=== PATIENT | female | born 1935 | race Caucasian/White ===

== ENCOUNTER 2018-04-26 06:33 | Day surgery (SDC) | payer OTHER ==
[2018-04-23 12:23] VITALS: BMI 26.6
[2018-04-26 07:24] LABS: BASO # 0.03 K/mm3 (0.0-2.0); BASO % 0.5 % (0.0-3.0); EOS # 0.3 (0.0-0.7); EOS % 5.2 % (1.5-5.0); GRAN # 3.12 (1.4-6.5); GRAN % 50.6 % (50.0-68.0); HEMOGLOBIN 11.5 g/dL (12.0-16.0); LYMPH # 2.2 (1.2-3.4); LYMPH % 36.1 % (22.0-35.0); MEAN CELL VOLUME 94.6 fl (80.0-105.0); MEAN CORPUSCULAR HEMOGLOBIN 30.8 pg (25.0-35.0); MEAN CORPUSCULAR HGB CONC 32.6 g/dl (31.0-37.0); MONO # 0.5 (0.1-0.6); MONO % 7.6 % (1.0-6.0); RBC 3.73 10^6/uL (3.5-6.1); RED CELL DISTRIBUTION WIDTH 14.4 % (11.5-14.5); WHITE BLOOD COUNT 6.2 10^3/ul (4.5-11.0)
[2018-04-26 07:27] LABS: CALCIUM 9.7 mg/dL (8.4-10.5)
[2018-04-26 07:28] LABS: INR 0.94; PARTIAL THROMBOPLASTIN TIME 29.5 Seconds (25.1-36.5); PROTHROMBIN TIME 10.8 SECONDS (9.4-12.5)
[2018-04-26 07:35] VITALS: RESP 18
[2018-04-26] MEDS ORDERED: Lidocaine PF 2% (5 ml) Inj (For Cardiac Arrhy) ONE (08:30)
[2018-04-26] MEDS ORDERED: Midazolam 2 MG/2 ML VIAL ONE ×2 (08:31→08:58)
[2018-04-26] MEDS ORDERED: Iodixanol 320 MG/ML 200 ML BOTTLE IV ONE (08:31)
[2018-04-26] MEDS ORDERED: Iodixanol 320 MG/ML 100 ML BOTTLE IV ONE (08:31)
[2018-04-26] MEDS ORDERED: Sodium Chloride 0.9% 1,000 ML IV SCH (09:45)
[2018-04-26 10:19] VITALS: TEMP 97.8
[2018-04-26] MEDS ORDERED: Pantoprazole 40mg/100mL NS 40 MG/100 ML BAG IVPB STA (10:29)
--- NOTE | 2018-04-26 10:47 | CARDCATH ---
PROCEDURE DATE: 04/26/2018 HISTORY: The patient is an 82-year-old woman who presents with chest pain and abnormal stress test. She suffers from hypertension, diabetes mellitus, and hypercholesterolemia. Because of her abnormal stress test, cardiac catheterization was recommended. PROCEDURE: Left heart catheterization with coronary arteriography and left ventriculogram. The right femoral artery was cannulated with a 6-[place] sheath. There were no complications. I performed moderate sedation which included the presence of an independent trained observer that assisted in monitoring the patient's level of consciousness and physiologic status. After administration of Versed and fentanyl, my intra-service time was 15 minutes. Initial hemodynamic data revealed a central aortic pressure of 220/110 mmHg. 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 The findings on catheterization revealed a left ventricle that contracted normally. Estimated ejection fraction of 70%. Her coronary anatomy revealed a right dominant circulation. The RCA revealed intimal irregularities without significant stenoses. The left main artery was unremarkable. The LAD revealed diffuse atherosclerosis throughout its length in the distal portion of the LAD, there is a 50% stenoses noted. The diagonal vessels were free of significant disease. The circumflex artery was free of significant disease. Angio-Seal was used to close the femoral artery site. The patient tolerated the procedure well. In summary, the procedure revealed diffuse coronary atherosclerosis with no critical lesions. In the very distal portion of the LAD, there is a 50% stenosis noted. LV function is normal. Given these findings, the patient will need to remain on aspirin indefinitely and undergoes cardiac risk reduction program. Emphasis needs to be controlling her blood pressure. We will discharge her with clonidine 0.1 b.i.d. She will follow with primary care doctor for continued BP control. Brandan Shanks MD
[2018-04-26 12:03] VITALS: O2SAT 100
[2018-04-26 15:28] VITALS: BP 130/70; PULSE 67
== END 2018-04-26 15:27 | disposition home or self-care (01) ==
LOC: CATH 06:33
PROVIDERS: ATTEND Internal Medicine Cardiovascular Disease
DX: I25.119 Atherosclerotic heart disease of native coronary artery with unspecified angina pectoris (principal); I10 Essential (primary) hypertension; E78.5 Hyperlipidemia, unspecified; D64.9 Anemia, unspecified; Z86.73 Personal history of transient ischemic attack (TIA), and cerebral infarction without residual deficits; E11.9 Type 2 diabetes mellitus without complications; E78.00 Pure hypercholesterolemia, unspecified; R94.39 Abnormal result of other cardiovascular function study
CPT/HCPCS: 36415; 80048; 80061; 85025; 85610; 85730; 86850; 86900; 93458; 99152; 99153; C1760; C1769; C2629; C9113; J0360; J1644; J2250; J3010; J7030; Q9966; Q9967

== ENCOUNTER 2018-09-10 09:54 | Outpatient (CLI) | payer OTHER | END 2018-09-10 09:55 | disposition home or self-care (01) | LOC: RAD 09:54 ==

== ENCOUNTER 2018-11-26 15:07 | Emergency (ER) | payer MEDICARE, OTHER, MEDICAID ==
--- NOTE | 2018-11-26 15:35 | ED PDOC ---
Arrival/HPI - General Historian: Patient - History of Present Illness Narrative History of Present Illness (Text): 11/26/18 15:30 83 y/o female, pmh including hld/dm/hypothyroidism/chronic hip pain bilaterally, c/o lt. hip pain for years with no fall or trauma. Pt. stated that she has left hip pain on and off for years, started again this week with weather change, no fever or chills, no headache or night sweat, no rash, no numbness or tingling, no palpitation, no rash, no other medical or psychological complaints. Past Medical History - Provider Review Nursing Documentation Reviewed: Yes - Infectious Disease Hx of Infectious Diseases: None - Tetanus Immunization Tetanus Immunization: Unknown - Cardiac Hx Pacemaker: No - Pulmonary Hx Respiratory Disorders: No Hx Asthma: No Hx Bronchitis: No Hx Chronic Obstructive Pulmonary Disease (COPD): No Hx Emphysema: No Hx Pneumonia: No Hx Respiratory Aspiration: No Hx Respiratory Tract Infection: No Hx Sleep Apnea: No Hx Tuberculosis: No - Neurological Hx Paralysis: No - HEENT Hx HEENT Disorder: No Hx Blind: No Hx Cataracts: Yes Hx Deafness: No Hx Difficulty Chewing: No Hx Glaucoma: No Hx Macular Degeneration: No - Renal Hx Renal Disorder: No Hx Dialysis: No Hx Kidney Stones: No Hx Neurogenic Bladder: No Hx Pyelonephritis: No Hx Renal Cancer: No Hx Renal Failure: No - Endocrine/Metabolic Hx Endocrine Disorders: No Hx Adrenal Cancer: No Hx Diabetes Insipidus: No Hx Diabetes Mellitus Type 1: No Hx Diabetes Mellitus Type 2: No Hx Hyperthyroidism: No Hx Hypothyroidism: Yes Hx Systemic Lupus Erythematosus: No - Hematological/Oncological Hx Blood Transfusions: No Hx Blood Transfusion Reaction: No - Integumentary Hx Dermatological Disorder: No Hx Basal Cell Carcinoma: No Hx Eczema: No Hx Melanoma: No Hx Psoriasis: No Hx Squamous Cell Carcinoma: No - Musculoskeletal/Rheumatological Hx Musculoskeletal Disorders: No - Gastrointestinal Hx Gastrointestinal Disorders: No Hx Colostomy: No Hx Crohn's Disease: No Hx Diverticulitis: No Hx Gall Bladder Disease: No Hx Gastroesophageal Reflux: No Hx Ileostomy: No Hx Liver Failure: No Hx Pancreatitis: No HX Swallowing Problems: No - Genitourinary/Gynecological Hx Genitourinary Disorders: No Hx Hematuria: No Hx Incontinence: No Hx Sexually Transmitted Diseases: No Hx Urinary Tract Infection: No - Psychiatric Hx Emotional Abuse: No Hx Physical Abuse: No Hx Substance Use: No - Surgical History Hx Amputation: No Hx Appendectomy: Yes (50 years ago) Hx Cardiac Catheterization: No Hx Cholecystectomy: No Hx Coronary Stent: No Hx Gastric Bypass Surgery: No Hx Hysterectomy: No Hx Joint Replacement: No Hx Kidney Transplant: No Hx Liver Transplant: No Hx Mastectomy: No Hx Musculoskeletal Surgery: No Hx Open Heart Surgery: No Hx Orthopedic Surgery: No Hx Splenectomy: No Hx Valve Replacement: No Other/Comment: cataract surgery 1 year ago. tubal ligation 50 years ago - Anesthesia Hx Anesthesia Reactions: No Hx Malignant Hyperthermia: No - Suicidal Assessment Feels Threatened In Home Enviroment: No Family/Social History - Physician Review Nursing Documentation Reviewed: Yes Family/Social History: Unknown Family HX Smoking Status: Never Smoked Hx Alcohol Use: No Hx Substance Use: No Hx Substance Use Treatment: No Allergies/Home Meds Allergies/Adverse Reactions: Allergies No Known Allergies Allergy (Verified 02/07/16 10:59) Home Medications: Home Meds Medication Instructions Recorded Confirmed Levothyroxine Sodium 75 mcg PO QAM 09/12/13 04/26/18 Linaclotide [Linzess] 145 mcg PO DAILY 02/07/16 04/26/18 Allopurinol [Zyloprim] 100 mg PO DAILY 04/23/18 04/26/18 Aspirin [Adult Aspirin] 81 mg PO DAILY 04/23/18 04/26/18 Ergocalciferol (Vitamin D2) 50,000 unit PO SAT 04/23/18 04/26/18 [Vitamin D2] Folic Acid 1 mg PO DAILY 04/23/18 04/26/18 Magnesium Oxide [Magnesium] 400 mg PO TID 04/23/18 04/26/18 Memantine HCl [Memantine HCl ER] 28 mg PO DAILY 04/23/18 04/26/18 Pravastatin Sodium [Pravachol] 40 mg PO DAILY 04/23/18 04/26/18 metFORMIN [glucOPHAGE] 250 mg PO DAILY 04/23/18 04/26/18 Review of Systems - Review of Systems Constitutional: absent: Fatigue, Fevers Eyes: absent: Vision Changes ENT: absent: Hearing Changes Respiratory: absent: SOB, Cough Cardiovascular: absent: Chest Pain Gastrointestinal: absent: Abdominal Pain, Diarrhea, Nausea, Vomiting Genitourinary Female: absent: Dysuria Musculoskeletal: Arthralgias Skin: absent: Rash, Pruritis Neurological: absent: Headache, Dizziness Psychiatric: absent: Anxiety, Depression, Suicidal Ideation Physical Exam Vital Signs Reviewed: Yes Temperature: Afebrile Blood Pressure: Normal Pulse: Regular Respiratory Rate: Normal Appearance: Positive for: Well-Appearing, Non-Toxic, Comfortable Pain Distress: Moderate Mental Status: Positive for: Alert and Oriented X 3 - Systems Exam Head: Present: Atraumatic, Normocephalic Pupils: Present: PERRL Extroacular Muscles: Present: EOMI Conjunctiva: Present: Normal Mouth: Present: Moist Mucous Membranes Neck: Present: Normal Range of Motion Respiratory/Chest: Present: Clear to Auscultation, Good Air Exchange. No: Respiratory Distress, Accessory Muscle Use Cardiovascular: Present: Regular Rate and Rhythm, Normal S1, S2. No: Murmurs Abdomen: No: Tenderness, Distention, Peritoneal Signs Back: Present: Normal Inspection. No: CVA Tenderness, Midline Tenderness, Paraspinal Tenderness, Pain with Leg Raise, Decubitus Ulcer Upper Extremity: Present: Normal Inspection. No: Cyanosis, Edema Lower Extremity: Present: Normal Inspection, NORMAL PULSES, Normal ROM, Neurovascularly Intact, Capillary Refill < 2 s, Other (LLE: +ttp on the lt. la teral hip tendon region, no erythematous/cellulitis or ulcers, FROM without limitation, sensation intact, motor 5/5, +DPPT pulses, capillary refill< 2 seconds, neurovascular intact. ). No: Edema, Swelling, Deformity Neurological: Present: GCS=15, CN II-XII Intact, Speech Normal, Motor Func Grossly Intact, Normal Cerebellar Funct, Gait Normal, Memory Normal Skin: Present: Warm, Dry, Normal Color. No: Rashes Psychiatric: Present: Alert, Oriented x 3, Normal Insight, Normal Concentration Medical Decision Making ED Course and Treatment: 11/26/18 15:43 -Lidoderm and percocet -xray -LLE venuous doppler 11/26/18 17:17 -LLT Venuous doppler: as per preliminary report, no DVT -Lt. hip xray ER wet read: no fracture/dislocation, +DJD -Pt. feels much better, walking with normal gait and posture. -Discharge home with lidoderm patch, tylenol, follow up with your own pmd and orthopedic within 2 days, return to the ER for any new or worsening signs or symptoms. - RAD Interpretation Radiology Orders: -LLT Venuous doppler: as per preliminary report, no DVT PROCEDURE: Left lower extremity venous US HISTORY: Leg pain and swelling. Evaluate for DVT. PHYSICIAN(S): Brandan Schreiber MD. TECHNIQUE: Duplex sonography and color-flow Doppler with graded compression were used to evaluate the deep venous system of the left lower extremity. FINDINGS: The visualized deep venous system of the left lower extremity is sonographically normal and compressible. Normal wave forms and augmentation are seen. There is no sonographic evidence for deep venous thrombosis in the visualized segments of the left lower extremity. IMPRESSION: 1. No sonographic evidence for deep venous thrombosis in the visualized segments of the left lower extremity. -Lt. hip xray Date of service: 11/26/2018 PROCEDURE: Pelvis, left hip three views HISTORY: lt. lateral hip pain for years COMPARISON: None TECHNIQUE: Standard protocol for this study/examination. FINDINGS: There are no osseous abnormalities to suggest fracture. The pelvic ring is intact. Preserved femoral-acetabular relationship. Negative study for protrusio, subluxation or dislocation. Degenerative changes: Minimal and symmetrical. IMPRESSION: No significant or acute findings to account for/ related to the clinical presentation. 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 Disposition/Present on Arrival - Present on Arrival Any Indicators Present on Arrival: No History of DVT/PE: No History of Uncontrolled Diabetes: No Urinary Catheter: No History of Decub. Ulcer: No History Surgical Site Infection Following: None - Disposition Have Diagnosis and Disposition been Completed?: Yes Diagnosis: Degenerative localized arthritis of hip, Hip pain Disposition: HOME/ ROUTINE Disposition Time: 17:18 Patient Plan: Discharge Patient Problems: Current Active Problems Problem Status Onset Degenerative localized arthritis of hip Acute Hip pain Acute Condition: GOOD Additional Instructions: Discharge home with lidoderm patch, tylenol, follow up with your own pmd and orthopedic within 2 days, return to the ER for any new or worsening signs or symptoms. Prescriptions: Acetaminophen [Tylenol] 2 cap PO QID PRN #30 capsule PRN Reason: Other Lidocaine 5% [Lidoderm] 1 patch TOP DAILY PRN #10 patch PRN Reason: Other Referrals: Aniceto Meadows MD [Primary Care Provider] - Follow up with primary Flori Muhammad MD [Staff Provider] - Follow up with primary
[2018-11-26 15:56] VITALS: RESP 18; TEMP 98.4; O2SAT 96; BMI 28.3
[2018-11-26] MEDS ORDERED: Oxycodone/Acetaminophen 2.5/325 mg Tab PO STA (15:57)
[2018-11-26] MEDS ORDERED: Lidocaine 5% Patch TD SCH (16:00)
--- NOTE | 2018-11-26 17:38 | US ---
PROCEDURE: Left lower extremity venous US HISTORY: Leg pain and swelling. Evaluate for DVT. PHYSICIAN(S): Brandan Schreiber MD. TECHNIQUE: Duplex sonography and color-flow Doppler with graded compression were used to evaluate the deep venous system of the left lower extremity. FINDINGS: The visualized deep venous system of the left lower extremity is sonographically normal and compressible. Normal wave forms and augmentation are seen. There is no sonographic evidence for deep venous thrombosis in the visualized segments of the left lower extremity. IMPRESSION: 1. No sonographic evidence for deep venous thrombosis in the visualized segments of the left lower extremity.
--- NOTE | 2018-11-26 17:45 | RAD ---
Date of service: 11/26/2018 PROCEDURE: Pelvis, left hip three views HISTORY: lt. lateral hip pain for years COMPARISON: None TECHNIQUE: Standard protocol for this study/examination. FINDINGS: There are no osseous abnormalities to suggest fracture. The pelvic ring is intact. Preserved femoral-acetabular relationship. Negative study for protrusio, subluxation or dislocation. Degenerative changes: Minimal and symmetrical. IMPRESSION: No significant or acute findings to account for/ related to the clinical presentation. Concordant results with the preliminary interpretation rendered by the emergency department physician procedure.
[2018-11-26 18:02] VITALS: BP 141/71; PULSE 69
== END 2018-11-26 18:04 | disposition home or self-care (01) ==
LOC: ED 15:07
DX: M25.552 Pain in left hip (principal); M16.12 Unilateral primary osteoarthritis, left hip; E11.9 Type 2 diabetes mellitus without complications; E03.9 Hypothyroidism, unspecified; E78.5 Hyperlipidemia, unspecified

== ENCOUNTER 2018-12-10 07:22 | Outpatient (CLI) | payer OTHER | END 2018-12-10 07:23 | disposition home or self-care (01) | LOC: RAD 07:22 ==